=== PATIENT | female | born 1985 | race African-American/Black ===

== ENCOUNTER 2018-01-08 04:54 | Emergency (ER) | payer OTHER ==
[2018-01-08 05:07] VITALS: BMI 27.7
[2018-01-08] MEDS ORDERED: SODIUM CHLORIDE 1,000 ML IV STA (05:30)
[2018-01-08] MEDS ORDERED: ACETAMINOPHEN 1000 MG/100 ML VIAL (NON FORMULARY) IVPB ONE (05:34)
--- NOTE | 2018-01-08 05:38 | PDOC ---
History of Present Illness - General Chief Complaint: Pain, Acute Stated Complaint: ABD PAIN Time Seen by Provider: 01/08/18 05:18 History Source: Patient - History of Present Illness Initial Comments: 01/08/18 05:34 32 year old female with nausea, fever, suprapubic pain and one episode of vomiting ER for 1 day. Patient denies dysuria, hematuria, frequency of urination , flank pain, vaginal discharge,vaginal bleeding, STD exposure. LMP: 12/15/[address] Past History - Past Medical History Allergies/Adverse Reactions: Allergies Allergy/AdvReac Type Severity Reaction Status Date / Time No Known Allergies Allergy Verified 01/08/18 05:36 Home Medications: Ambulatory Orders NK [No Known Home Medication] 01/08/18 COPD: No GI Disorders: Yes (fibroids) - Suicide/Smoking/Psychosocial Hx Smoking History: Never smoked Review of Systems - Review of Systems Able to Perform ROS?: Yes Is the patient limited Romansh proficient: No Constitutional: Yes: Fever ABD/GI: Yes: Nausea, Vomiting, Abdominal cramping (suprapubic pain) : No: Symptoms Reported, See HPI, Burning, Dysuria, Discharge, Frequency, Flank Pain, Hematuria, Incontinence, Pain, Urgency, Testicular Mass, Testicular Swelling, Lesions, Testicular Pain, Other Neurological: No: Symptoms reported, See HPI, Headache, Numbness, Paresthesia, Pre-Existing Deficit, Seizure, Tingling, Tremors, Weakness, Unsteady Gait, Ataxia, Dizziness, Other *Physical Exam - Vital Signs Last Vital Signs Temp Pulse Resp BP Pulse Ox 101.1 F H 98 H 24 130/76 99 01/08/18 05:28 01/08/18 05:04 01/08/18 05:04 01/08/18 05:04 01/08/18 05:04 - Physical Exam General Appearance: Yes: Appropriately Dressed Respiratory/Chest: positive: Lungs Clear, Normal Breath Sounds Cardiovascular: positive: Regular Rhythm, Regular Rate Gastrointestinal/Abdominal: positive: Normal Bowel Sounds, Soft Extremity: positive: Normal Capillary Refill, Normal Inspection, Normal Range of Motion Integumentary: positive: Normal Color, Dry, Warm Neurologic: positive: Fully Oriented, Alert, Normal Mood/Affect ED Treatment Course - LABORATORY CBC & Chemistry Diagram: 01/08/18 05:45 01/08/18 05:45 Progress Note - Progress Note Progress Note: A abdominal pain p: CBC, CMP, UA, urine culture IV fluids Zofran Tylenol Medical Decision Making - Medical Decision Making 01/08/18 06:54 patient signed out Claus Reid NP.
[2018-01-08] MEDS ORDERED: ONDANSETRON 4 MG/2 ML VIAL IVPUSH ONE (05:45)
[2018-01-08] MEDS ORDERED: ACETAMINOPHEN INJECTION 100 ML IVPB ONE (05:53)
[2018-01-08] MEDS ORDERED: ONDANSETRON 4 MG/2 ML VIAL ONE (05:53)
[2018-01-08 06:08] LABS: HEMATOCRIT 35.7 % (32.4-45.2); HEMOGLOBIN 11.8 GM/dL (10.7-15.3); MCH 25.6 pg (25.7-33.7); MCHC 33.1 g/dl (32.0-36.0); MEAN CELL VOLUME 77.3 fl (80-96); MEAN PLT VOLUME 8.7 fl (7.5-11.1); PLATELET COUNT 241 K/MM3 (134-434); RBC 4.63 M/mm3 (3.60-5.2); RDW 14.4 % (11.6-15.6); WHITE BLOOD COUNT 18.2 K/mm3 (4.0-10.0)
[2018-01-08 06:41] LABS: CHLORIDE 108 mmol/L (98-107); POTASSIUM 3.7 mmol/L (3.5-5.1); SODIUM 139 mmol/L (136-145)
[2018-01-08 06:49] LABS: ALBUMIN 3.6 g/dl (3.4-5.0); ALK PHOS 47 U/L (45-117); ANION GAP 7 (8-16); BILIRUBIN,TOTAL 0.5 mg/dL (0.2-1.0); BLOOD UREA NITROGEN 11 mg/dL (7-18); CALCIUM 8.2 mg/dL (8.5-10.1); CO2 24 mmol/L (21-32); CREATININE 0.9 mg/dL (0.55-1.02); GLUCOSE,RANDOM 82 mg/dL (74-106); SGOT/AST 12 U/L (15-37); SGPT/ALT 13 U/L (12-78)
--- NOTE | 2018-01-08 07:01 | PDOC ---
*Physical Exam - Vital Signs Last Vital Signs Temp Pulse Resp BP Pulse Ox 101.1 F H 98 H 24 130/76 99 01/08/18 05:28 01/08/18 05:04 01/08/18 05:04 01/08/18 05:04 01/08/18 06:10 - Physical Exam General Appearance: Yes: Appropriately Dressed. No: Apparent Distress HEENT: positive: Normal ENT Inspection Neck: positive: Trachea midline, Supple Respiratory/Chest: positive: Lungs Clear, Normal Breath Sounds. negative: Respiratory Distress, Accessory Muscle Use Cardiovascular: positive: Regular Rhythm, Regular Rate. negative: Murmur Female Pelvic Exam: positive: normal external exam, CMT, discharge (yellow cervical discharge), adnexal tenderness Gastrointestinal/Abdominal: positive: Normal Bowel Sounds, Tender (Tender over suprapubic area), Soft Musculoskeletal: positive: Normal Inspection. negative: CVA Tenderness Extremity: positive: Normal Inspection, Normal Range of Motion. negative: Tender Integumentary: positive: Normal Color, Dry, Warm Neurologic: positive: Alert, Normal Response ED Treatment Course - LABORATORY CBC & Chemistry Diagram: 01/08/18 05:45 01/08/18 05:45 - ADDITIONAL ORDERS Additional order review: 01/08/18 05:45 RBC 4.63 MCV 77.3 L MCHC 33.1 RDW 14.4 MPV 8.7 Neutrophils % No Result Required. Lymphocytes % No Result Required. - Medications Given in the ED: ED Medications Discontinued Medications Generic Name Dose Route Start Last Admin Trade Name Freq PRN Reason Stop Dose Admin Acetaminophen 1,000 mg 01/08/18 05:34 01/08/18 06:08 Ofirmev Injection - IVPB 01/08/18 05:35 1,000 mg ONCE ONE Administration Sodium Chloride 1,000 mls @ 1,000 mls/hr 01/08/18 05:30 01/08/18 06:08 Normal Saline - IV 01/08/18 06:29 1,000 mls/hr ASDIR STA Administration Ondansetron HCl 4 mg 01/08/18 05:45 01/08/18 06:08 Zofran Injection IVPUSH 01/08/18 05:46 4 mg ONCE ONE Administration Progress Note - Progress Note Progress Note: I have received report from EM Pisano regarding this patient. Pt's initial chief complaint: suprapubic pain and fever Pt's work up completed prior to sign out: Labs, UA, U/S Pt treatment given from prior staff: Tylenol, Zofran Pt plan to be completed: lab, U/S results Dispo: Pending Medical Decision Making - Medical Decision Making 01/08/18 11:25 Given elevated white count, cervical motion tenderness, bilateral adnexal tenderness patient is likely to have PID. I will treat with ceftriaxone 250 mg IM now and doxycycline 100 mg twice a day for the next 2 weeks as an outpatient. 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 *DC/Admit/Observation/Transfer Diagnosis at time of Disposition: Acute PID (pelvic inflammatory disease) Uterine fibroid Qualifiers: Uterine leiomyoma location: unspecified location Qualified Code(s): D25.9 - Leiomyoma of uterus, unspecified - Discharge Dispostion Disposition: HOME Condition at time of disposition: Stable Admit: No - Prescriptions Prescriptions: Doxycycline Monohydrate [Mondoxyne Nl] 100 mg PO BID #28 capsule traMADol HCL [Ultram] 50 mg PO Q6H PRN #20 tablet MDD 4 PRN Reason: Pain - Referrals - Patient Instructions Printed Discharge Instructions: DI for Pelvic Inflammatory Disease Additional Instructions: Avoid intercourse until you have completed ALL antibiotics. Make an appointment with your burn nurse for re-evaluation within the next 2 weeks. Always wear condoms during intercourse unless you are actively trying to conceive. Return to ED for worsening pain, vaginal bleeding, fevers or any other concerns. - Post Discharge Activity Forms/Work/School Notes: Back to Work
[2018-01-08 09:44] LABS: URINE APPEARANCE SLCLOUDY; URINE BILIRUBIN NEGATIVE (<2.0 mg/dL); URINE BLOOD 2+ (NEGATIVE); URINE COLOR LTYELLOW; URINE GLUCOSE (UA) NEGATIVE (NEGATIVE); URINE KETONE 1+ (NEGATIVE); URINE LEUK ESTERASE TRACE (NEGATIVE); URINE NITRITE NEGATIVE (NEGATIVE); URINE PROTEIN NEGATIVE (NEGATIVE); URINE UROBILINOGEN NEGATIVE mg/dL (0.2-1.0)
[2018-01-08] MEDS ORDERED: KETOROLAC TROMETHAMINE 15 MG/ML VIAL IVPUSH ONE (09:52)
[2018-01-08] MEDS ORDERED: KETOROLAC TROMETHAMINE 15 MG/ML VIAL ONE (10:22)
[2018-01-08 10:31] LABS: EPI CELLS FEW /HPF (FEW); URINE BACTERIA RARE /hpf (NONE SEEN); URINE MUCUS RARE
[2018-01-08 11:23] VITALS: BP 122/68; PULSE 99; TEMP 98.2
[2018-01-08] MEDS ORDERED: cefTRIAXone SODIUM 1 GM VIAL ONE (12:03)
[2018-01-08 12:10] LABS: PLATELET ESTIMATE NORMAL
== END 2018-01-08 12:49 | disposition home or self-care (01) ==
LOC: JER 04:54
PROC: 3E0337Z Introduction of Electrolytic and Water Balance Substance into Peripheral Vein, Percutaneous Approach (ICD-10-PCS; principal; 2018-01-08)
PROC: 3E033GC Introduction of Other Therapeutic Substance into Peripheral Vein, Percutaneous Approach (ICD-10-PCS; 2018-01-08)
PROC: 3E033NZ Introduction of Analgesics, Hypnotics, Sedatives into Peripheral Vein, Percutaneous Approach (ICD-10-PCS; 2018-01-08)
PROC: 3E0333Z Introduction of Anti-inflammatory into Peripheral Vein, Percutaneous Approach (ICD-10-PCS; 2018-01-08)
PROC: 3E02329 Introduction of Other Anti-infective into Muscle, Percutaneous Approach (ICD-10-PCS; 2018-01-08)
DX: N73.0 Acute parametritis and pelvic cellulitis (principal); D25.9 Leiomyoma of uterus, unspecified
CPT/HCPCS: 36415; 76830-TC; 76856-TC; 80053; 81003; 81015; 84703; 85025; 87086; 87491; 87591; 99284-25; J0131; J7030